=== PATIENT | female | born 1980 | race Caucasian/White ===

== ENCOUNTER 2022-08-25 16:19 | Emergency (ER) | payer MEDICAID ==
[~2022-08-25] VITALS: Ht 172.7 cm; Wt 59.0 kg
[2022-08-25 16:20] VITALS: BP 152/82
--- NOTE | 2022-08-25 17:20 | NUR ---
ASKED PT FOR URINE SAMPLE IN ORDER TO ADMIN PAIN MEDICATION. PT REFUSED STATED SHE NEEDS PAIN MEDS FIRST AND WATER. WATER PROVIDED. PA PINTO AWARE.
[2022-08-25] MEDS ORDERED: IBUP-2213 PO (18:17)
--- NOTE | 2022-08-25 19:00 | NUR ---
PT UP FOR D/C, NOT FOUND IN LOBBY/OUTSIDE. RX OF MOTRIN SENT TO [facility]
[2022-08-25] MEDS: KETOROLAC 30 MG/ML VIAL IVP ONE (19:10)
== END 2022-08-25 19:00 | disposition home or self-care (01) ==
LOC: MED 16:19
DX: M20.12 Hallux valgus (acquired), left foot (principal); M20.11 Hallux valgus (acquired), right foot; Z59.00 Homelessness unspecified; Z79.1 Long term (current) use of non-steroidal anti-inflammatories (NSAID)
CPT/HCPCS: 73620; 73630; 99283

== ENCOUNTER 2022-09-02 11:37 | Emergency (ER) | payer MEDICAID ==
[~2022-09-02 11:37] MED LIST: IBUP-2213 PO
--- NOTE | 2022-09-02 11:46 | NUR ---
PATIENT LEFT WITHOUT BEING SEEN BY DR. RUDOLPH. NO FURTHER CARE PROVIDED FOR PATIENT.
== END 2022-09-02 11:46 | disposition left against medical advice (07) ==
LOC: MED 11:37
DX: R21 Rash and other nonspecific skin eruption (principal); Z53.21 Procedure and treatment not carried out due to patient leaving prior to being seen by health care provider